=== PATIENT | female | born 1945 | race African-American/Black ===

== ENCOUNTER 2020-08-01 11:17 | Outpatient (CLI) | payer MEDICARE, OTHER, MEDICAID | END 2020-08-01 11:18 | disposition home or self-care (01) | LOC: CSHCP 11:17 | PROVIDERS: ATTEND Internal Medicine Critical Care Medicine | DX: J44.9 Chronic obstructive pulmonary disease, unspecified (principal); R94.2 Abnormal results of pulmonary function studies | CPT/HCPCS: 94060; 94726; 94729; 94760 ==

== ENCOUNTER 2022-12-24 13:17 | Outpatient (CLI) | payer OTHER, MEDICAID | END 2022-12-24 13:18 | disposition home or self-care (01) | LOC: CSHCP 13:17 | PROVIDERS: ATTEND Internal Medicine Critical Care Medicine | DX: J44.9 Chronic obstructive pulmonary disease, unspecified (principal); J98.4 Other disorders of lung | CPT/HCPCS: 94060; 94726; 94729; 94760 ==